=== PATIENT | male | born 1985 | race Caucasian/White ===

== ENCOUNTER 2019-04-24 01:46 | Emergency (ER) | payer SELFPAY ==
[~2019-04-24] VITALS: Ht 182.9 cm; Wt 97.5 kg
[~2019-04-24 01:46] MED LIST: CYCL10TA2 PO
[2019-04-24] MEDS ORDERED: IBUPROFEN 200 MG TABLET. PO ONE (02:30)
[2019-04-24] MEDS ORDERED: DIPHTH,PERTUSS(ACELL),TET TOX 0.5 ML DISP.SYRIN. VAX IM ONE (02:30)
[2019-04-24] MEDS ORDERED: NEOMY/BACITR/POLYMYXIN OINT PACKET. TP ONE (02:30)
--- NOTE | 2019-04-24 02:50 | PHYS DOC ---
Past Medical History Past Medical History: No Pertinent History Past Medical History Limited due to alcohol intoxication Past Surgical History: Other Additional Past Surgical Histo: testicular surgey at age 7 Past Surgical History Limited due to alcohol intoxication Alcohol Use: Occasionally Drug Use: Marijuana Social History Limited due to alcohol intoxication Adult General Chief Complaint Chief Complaint: HAND PROBLEM HPI HPI 34-year-old male presents acutely intoxicated with report of right hand injury. Patient reports he punched "something ". Reports small laceration to his middle finger. Reports swelling and bruising to fourth and fifth knuckle. Denies numbness or tingling. Patient reports his life is "bad ". Reports the girl that he loves his with someone else. Patient denies suicidal or homicidal ideation. Reports last tetanus booster was greater than 5 years ago. History of present illness limited due to alcohol intoxication. Review of Systems Review of Systems Constitutional: Denies fever or chills Musculoskeletal: Reports right hand pain and swelling Integument: Reports abrasions and superficial laceration to right hand, reports bruising and swelling to right hand after punching something. Neurologic: Denies headache, focal weakness or sensory changes Psychiatric: Denies suicidal or homicidal ideation; reports depression Review of systems limited due to ETOH intoxication Current Medications Current Medications Current Medications Medications (Trade) Dose Ordered Sig/Pepe Start Time Stop Time Status Last Admin Dose Admin Diphtheria/ Tetanus/Acell Pertussis (Boostrix) 0.5 ml ONCE ONCE 04/24/19 02:30 04/24/19 02:31 DC 04/24/19 03:01 0.5 ML Ibuprofen (Motrin) 600 mg 1X ONCE 04/24/19 02:30 04/24/19 02:31 DC 04/24/19 03:01 600 MG Neomycin/ Polymyxin/ Bacitracin (Triple Antibiotic Ointment) 1 pkt 1X ONCE 04/24/19 02:30 04/24/19 02:31 DC 04/24/19 03:02 1 PKT Allergies Allergies Allergies Coded Allergies Type Severity Reaction Last Updated Verified No Known Drug Allergies 09/22/18 No Physical Exam Physical Exam Constitutional: Well developed, well nourished, no acute distress, non-toxic appearance HENT: Normocephalic, atraumatic, oropharynx moist Eyes: PERRL, EOMI, conjunctiva normal, no discharge, horizontal nystagmus Neck: Normal range of motion, no tenderness, supple Cardiovascular: Heart rate normal, regular rhythm Lungs & Thorax: Bilateral breath sounds clear to auscultation, no wheezing Skin: Warm, dry, no erythema, small superficial 1cm laceration to base of 3rd digit Extremities: right 4th and 5th MCP swelling and bruising to dorsal aspect, pain to right distal forearm/wrist, no deformity noted Neurologic: Alert and oriented X 3, no focal deficits noted Psychologic: Affect depressed, denies suicidal or homicidal ideation Current Patient Data Vital Signs Vital Signs Date Time Temp Pulse Resp B/P (MAP) Pulse Ox O2 Delivery O2 Flow Rate FiO2 04/24/19 02:51 102 20 96 04/24/19 02:51 109/67 (81) Room Air 04/24/19 01:55 98.9 98.9 EKG EKG [] Radiology/Procedures Radiology/Procedures EXAM: 1. Right forearm 2 views. 2. Right hand 3 views. HISTORY: Hand and forearm pain after trauma. COMPARISON: None. FINDINGS: A wire-like radiopaque foreign body projects within the radial soft tissues of the second digit distally measures 2 mm. No acute fractures are appreciated within the hand. There is a chronic healed fracture of the fifth metacarpal. The fingers are curled and not well-visualized. There is soft tissue swelling along the dorsum of the metacarpophalangeal joints. Joint spaces and alignment appear maintained. No fractures are appreciated more proximally in the forearm. The joint spaces and alignment of the elbow appear maintained. IMPRESSION: 1. Soft tissue swelling. No acute fracture. 2. 2 mm wire-like radiopaque foreign body within the second digit as above. Electronically signed by: Behzad Brennan MD (04/24/2019 2:57 AM) [facility] Course & Med Decision Making Course & Med Decision Making Pertinent Imaging studies reviewed. (See chart for details) Patient presents acutely intoxicated with abrasions noted to right hand with small superficial laceration and swelling to 4th/5th MCP. Wound cleaned and dressed. ICE applied. XR obtained without acute fracture, findings of chronic fracture noted. Patient crying and reporting "I have a bad life". Reports the girl he loves is with someone else. Patient denies suicidal or homicidal ideation. PAPITO bandage applied. Patient ambulatory with steady gate. Patient stable for discharge with friends with outpatient follow-up with PCP/orthopedic surgery/psychiatrist. Discussed findings and plan with patient and friends, who acknowledge understanding and agreement. Dragon Disclaimer Dragon Disclaimer This electronic medical record was generated, in whole or in part, using a voice recognition dictation system. Splinting Splinting : Location: right hand Pre-Made Type: PAPITO bandage Pre-Proc Neuro Vasc Exam: normal Post-Proc Neuro Vasc Exam: normal, unchanged from pre-exam Departure Departure Impression: Primary Impression: Hand contusion Additional Impressions: Finger fracture, right Sprain of wrist, right Alcohol intoxication Depression Abrasion Disposition: 01 HOME, SELF-CARE Condition: STABLE Referrals: NO PCP (PCP) WINTER POOLE MD Patient Instructions: Abrasion, [id number], Alcohol Intoxication, [id number], Depression, Adult, Gunw-ir-Lxen, Finger Fracture, [id number]-[id number], Hand Contusion, Iawo-wn-Ynka, Wrist Sprain with Rehab[facility] Additional Instructions: Use over the counter Tylenol and Ibuprofen for pain or discomfort. ICE area 20 min on then leave off for next 20 min. Do not soak your wound. You may shower. Clean wound daily with soap and water. Change dressing 2 times daily. Use over the counter antibiotic ointment with each dressing change. Problem Qualifiers Primary Impression: Hand contusion Encounter type: initial encounter Laterality: right Qualified Codes: S60.221A - Contusion of right hand, initial encounter Additional Impressions: Finger fracture, right Encounter type: sequela Finger: ring finger Fracture type: closed Phalanx: proximal Fracture alignment: nondisplaced Qualified Codes: S62.644S - Nondisplaced fracture of proximal phalanx of right ring finger, sequela Sprain of wrist, right Encounter type: initial encounter Qualified Codes: S63.501A - Unspecified sprain of right wrist, initial encounter Alcohol intoxication Complication of substance-induced condition: uncomplicated Qualified Codes: F10.920 - Alcohol use, unspecified with intoxication, uncomplicated Depression Depression Type: unspecified Qualified Codes: F32.9 - Major depressive disorder, single episode, unspecified NETTIE MIRANDA DO Apr 24, 2019 02:50
[2019-04-24 02:51] VITALS: BP 109/67
--- NOTE | 2019-04-24 03:00 | RAD ---
EXAM: 1. Right forearm 2 views. 2. Right hand 3 views. HISTORY: Hand and forearm pain after trauma. COMPARISON: None. FINDINGS: A wire-like radiopaque foreign body projects within the radial soft tissues of the second digit distally measures 2 mm. No acute fractures are appreciated within the hand. There is a chronic healed fracture of the fifth metacarpal. The fingers are curled and not well-visualized. There is soft tissue swelling along the dorsum of the metacarpophalangeal joints. Joint spaces and alignment appear maintained. No fractures are appreciated more proximally in the forearm. The joint spaces and alignment of the elbow appear maintained. IMPRESSION: 1. Soft tissue swelling. No acute fracture. 2. 2 mm wire-like radiopaque foreign body within the second digit as above. Electronically signed by: Behzad Brennan MD (04/24/2019 2:57 AM) [facility]
== END 2019-04-24 03:13 | disposition home or self-care (01) ==
LOC: ER 01:46
DX: S62.644A Nondisplaced fracture of proximal phalanx of right ring finger, initial encounter for closed fracture (principal); S61.212A Laceration without foreign body of right middle finger without damage to nail, initial encounter; S60.041A Contusion of right ring finger without damage to nail, initial encounter; S60.051A Contusion of right little finger without damage to nail, initial encounter; F10.129 Alcohol abuse with intoxication, unspecified; Y90.9 Presence of alcohol in blood, level not specified; W22.8XXA Striking against or struck by other objects, initial encounter; Y93.89 Activity, other specified; Y92.89 Other specified places as the place of occurrence of the external cause; Y99.8 Other external cause status; S63.591A Other specified sprain of right wrist, initial encounter; F32.9 Major depressive disorder, single episode, unspecified
CPT/HCPCS: 73090; 73130; 90471; 90715; 99284

== ENCOUNTER 2019-09-11 01:57 | Emergency (ER) | payer SELFPAY ==
[~2019-09-11] VITALS: Ht 182.9 cm; Wt 95.3 kg
[2019-09-11 02:39] VITALS: BP 105/67
[2019-09-11] MEDS ORDERED: NAPR-682 PO (02:50)
--- NOTE | 2019-09-11 02:51 | PHYS DOC ---
Past Medical History Past Medical History: No Pertinent History Past Surgical History: Other Additional Past Surgical Histo: testicular surgey at age 7 Alcohol Use: Occasionally Drug Use: Marijuana Adult General Chief Complaint Chief Complaint: MECHANICAL FALL HPI HPI Patient is a 34 year old male who presented to ER today for evaluation of left lower back pain after he fell onto the fender of his car today. Patient said he drinking alcohol with his dad today, when he tried to walk home he slipped and fell down. Patient denies any head or neck injury. Patient had a history of chronic back pain, patient felt like when he fell he aggrevated his back problem. he denies any pelvic pain, no hip pain. All other ROS is negative unless otherwise noted in HPI Review of Systems Review of Systems See above Current Medications Current Medications Current Medications Medications (Trade) Dose Ordered Sig/Pepe Start Time Stop Time Status Last Admin Dose Admin Ketorolac Tromethamine (Toradol Im) 60 mg 1X ONCE 09/11/19 03:00 09/11/19 03:01 DC 09/11/19 02:41 60 MG Orphenadrine Citrate (Norflex) 60 mg 1X ONCE 09/11/19 03:00 09/11/19 03:01 DC 09/11/19 02:42 60 MG Allergies Allergies Allergies Coded Allergies Type Severity Reaction Last Updated Verified No Known Drug Allergies 09/22/18 No Physical Exam Physical Exam See above Constitutional: Well developed, well nourished, no acute distress, non-toxic appearance. [] HENT: Normocephalic, atraumatic, bilateral external ears normal, oropharynx moist, no oral exudates, nose normal. [] Eyes: PERRLA, EOMI, conjunctiva normal, no discharge. [] Neck: Normal range of motion, no tenderness, supple, no stridor. [] Cardiovascular:Heart rate regular rhythm, no murmur [] Lungs & Thorax: Bilateral breath sounds clear to auscultation [] Abdomen: Bowel sounds normal, soft, no tenderness, no masses, no pulsatile masses. [] Skin: Warm, dry, no erythema, no rash. [] Back: No tenderness, no CVA tenderness. NO CONTUSION, no bony tenderness. Extremities: No tenderness, no cyanosis, no clubbing, ROM intact, no edema. [] Neurologic: Alert and oriented X 3, normal motor function, normal sensory function, no focal deficits noted. [] Psychologic: Affect normal, judgement normal, mood normal. [] Current Patient Data Vital Signs Vital Signs Date Time Temp Pulse Resp B/P (MAP) Pulse Ox O2 Delivery O2 Flow Rate FiO2 09/11/19 02:39 73 97 09/11/19 02:06 97.5 20 97.5 09/11/19 02:03 113/67 (82) Room Air EKG EKG [] Radiology/Procedures Radiology/Procedures [][facility] [address] [place] [address] IMAGING REPORT Signed PATIENT: DESTINEE SHEPPARD PACCOUNT: [id number] : 1985 LOCATION: ER AGE: 34 SEX: M EXAM STATUS: PRE ER ORD. PHYSICIAN: NISHANT MARCUS DO REASON: LOWER BACK PAIN, FELL TONIGHT PROCEDURE: LUMBAR SPINE 2-3V Lumbar spine AP lateral x-rays 3 views HISTORY: Lower back pain, fall. FINDINGS: Lumbar vertebral body height and alignment intact. No fracture evident. Moderate disc space narrowing and endplate spurring at L5-S1 disc space. IMPRESSION: No acute osseous injury. L5-S1 disc disease. Electronically signed by: Moises Pino MD (09/11/2019 3:00 AM) [facility] DICTATED and SIGNED BY: MOISES PINO MD DATE: 09/11/19 0300 Course & Med Decision Making Course & Med Decision Making Pertinent Labs and Imaging studies reviewed. (See chart for details) [] Dragon Disclaimer Dragon Disclaimer This electronic medical record was generated, in whole or in part, using a voice recognition dictation system. Departure Departure Impression: Primary Impression: Lower back pain Disposition: HOME, SELF-CARE Condition: STABLE Referrals: NO PCP (PCP) FOLLOW UP WITH YOUR DOCTOR NEEDED NEXT WEEK . Patient Instructions: Back Pain, Adult Scripts Naproxen Sodium (ANAPROX DS) 550 Mg Tablet 1 TAB PO BID for 10 Days, #20 TAB 0 Refills Prov: NISHANT MARCUS DO 09/11/19 NISHANT MARCUS DO Sep 11, 2019 02:51
[2019-09-11] MEDS ORDERED: ORPHENADRINE CITRATE 60 MG/2 ML VIAL. IM ONE (03:00)
[2019-09-11] MEDS ORDERED: KETOROLAC 60 MG/2 ML VIAL. IM ONE (03:00)
--- NOTE | 2019-09-11 03:03 | RAD ---
Lumbar spine AP lateral x-rays 3 views HISTORY: Lower back pain, fall. FINDINGS: Lumbar vertebral body height and alignment intact. No fracture evident. Moderate disc space narrowing and endplate spurring at L5-S1 disc space. IMPRESSION: No acute osseous injury. L5-S1 disc disease. Electronically signed by: Marco Pino MD (09/11/2019 3:00 AM) [id number]
== END 2019-09-11 03:00 | disposition home or self-care (01) ==
LOC: ER 01:57
DX: G89.11 Acute pain due to trauma (principal); M54.5 Low back pain; F12.90 Cannabis use, unspecified, uncomplicated; Z98.890 Other specified postprocedural states; W18.39XA Other fall on same level, initial encounter; Y93.89 Activity, other specified; Y92.89 Other specified places as the place of occurrence of the external cause; Y99.8 Other external cause status
CPT/HCPCS: 72100; 96372; 99284; J1885; J2360

== ENCOUNTER 2020-09-17 10:12 | Emergency (ER) | payer SELFPAY ==
[~2020-09-17] VITALS: Ht 182.9 cm; Wt 93.1 kg
[~2020-09-17 10:12] MED LIST changes: +NAPR-682 PO
[2020-09-17 10:20] VITALS: BP 136/89
--- NOTE | 2020-09-17 10:40 | PHYS DOC ---
Past Medical History Past Medical History: Other Additional Past Medical Histor: CHRONIC BACK PAIN Past Surgical History: Other Additional Past Surgical Histo: testicular surgey at age 7 Smoking Status: Current Every Day Smoker Alcohol Use: Rarely Drug Use: Marijuana General Adult EDM: Chief Complaint: BACK PAIN - NO INJURY HPI: HPI: Patient is a 35 year old male presents to the emergency department complaining of lumbar spine pain after loading wood at work on Thursday. Patient states his boss told him he needed to come to the emergency department and be evaluated. Patient states he has a longstanding history of chronic low back pains. Patient denies any specific injury to his low back stating that he exacerbated his pain from bending over and lifting wood to throw onto truck for transport. Patient states that he has seen a chiropractor in the past which helps some. Patient states today he is needing a work excuse and pain medicine for his low back. Patient denies any numbness or tingling down his lower extremities, patient denies any loss of bowel or bladder. Patient denies any lower extremity swelling. Patient denies any nausea vomiting or diarrhea or constipation. Patient denies any recent fever chills cough shortness of breath or chest pains. Patient denies any other physical elements or physical complaints at this time. Review of Systems: Review of Systems: 14 body systems of review of systems have been reviewed. See HPI for pertinent positives and negative responses, otherwise all other systems are negative, nonpertinent or noncontributory. Heart Score: Risk Factors: Risk Factors: DM, Current or recent (<one month) smoker, HTN, HLP, family history of CAD, obesity. Risk Scores: Score 0 - 3: 2.5% MACE over next 6 weeks - Discharge Home Score 4 - 6: 20.3% MACE over next 6 weeks - Admit for Clinical Observation Score 7 - 10: 72.7% MACE over next 6 weeks - Early Invasive Strategies Allergies: Allergies: Allergies Coded Allergies Type Severity Reaction Last Updated Verified No Known Drug Allergies 09/22/18 No Physical Exam: PE: Constitutional: Well developed, well nourished, no acute distress, non-toxic appearance. HENT: Normocephalic, atraumatic, bilateral external ears normal, oropharynx moist, no oral exudates, nose normal. Eyes: PERRLA, EOMI, conjunctiva normal, no discharge. Neck: Normal range of motion, no tenderness, supple, no stridor. Cardiovascular:Heart rate regular rhythm, no murmur Lungs & Thorax: Bilateral breath sounds clear to auscultation Abdomen: Bowel sounds normal, soft, no tenderness, no masses, no pulsatile masses. Skin: Warm, dry, no erythema, no rash. Back: No CVA tenderness elicited, patient has pain to palpation at mid lumbar area without radiation of pain, patient denies any numbness or tingling down extremities, no extremity swelling, 2+ dorsalis pedis and posterior tibial pulses, distal cap refill less than 2 seconds bilaterally. No saddle anesthesia appreciated. Extremities: No tenderness, no cyanosis, no clubbing, ROM intact, no edema. Neurologic: Alert and oriented X 3, normal motor function, normal sensory function, no focal deficits noted. Psychologic: Affect normal, judgement normal, mood normal. Current Patient Data: Vital Signs: Vital Signs Date Time Temp Pulse Resp B/P (MAP) Pulse Ox O2 Delivery O2 Flow Rate FiO2 09/17/20 10:20 97.9 89 18 136/89 (105) 96 Room Air 97.9 EKG: EKG: [] Radiology/Procedures: Radiology/Procedures: SEX: M EXAM STATUS: REG ER ORD. PHYSICIAN: NETTIE CARLOS APRN REASON: MIDLINE LUMBAR SPINE PAIN AFTER LIFTING HEAVY OBJECTS PROCEDURE: CT LUMBAR SPINE WO CONTRAST CT LUMBAR SPINE WO Date: 09/17/2020 11:14 AM Indication: Reason: MIDLINE LUMBAR SPINE PAIN AFTER LIFTING HEAVY OBJECTS / Spl. Instructions: / History: Comparison: None. Technique: Helical CT images of the lumbar spine were obtained without contrast. Coronal and sagittal reformatted images were also performed. One or more of the following dose reduction techniques were utilized: Automated exposure control (AEC), Adjustment of mA and/or kV according to patient size, Use of iterative reconstruction technique such as ASiR, CT scan done according to ALARA and image gently/image wisely. Findings: The lumbar spine is normally aligned. No acute fracture. Vertebral body heights are maintained without compression deformity. Mild degenerative disc disease at L5-S1. No aggressive lytic or blastic osseous lesion. No high grade spinal canal stenosis or neuroforaminal narrowing. No soft tissue abnormality within the visualized abdomen or pelvis. The visualized abdominal aorta is normal caliber. IMPRESSION: No acute osseous abnormality of the lumbar spine. Mild lumbar spondylosis. Electronically signed by: Fariha Barrera MD (09/17/2020 1:01 PM) [id number] DICTATED and SIGNED BY: FARIHA BARRERA MD DATE: 09/17/20 [id number] 0 Course & Med Decision Making: Course & Med Decision Making Pertinent Labs and Imaging studies reviewed. (See chart for details) 35-year-old male presents emergency department for low back pain seeking a work excuse and pain medicines. Physical exam did not reveal any saddle anesthesia, did reveal lumbar midline spinal pain, a CT was ordered for evaluation. CT L-spine read negative for acute process per house radiologist interpretation. Discussed findings with patient, patient will be discharged home with ibuprofen for pain, work excuse for 2 days. Patient gave verbal understanding discharge home instructions, return to ER precautions and concerns, medication use, follow-up with primary care for further chronic back pains, had no further questions or concerns and was discharged home without incident. Impression: #1 lumbago Dragon Disclaimer: Dragon Disclaimer: This electronic medical record was generated, in whole or in part, using a voice recognition dictation system. Departure Departure Impression: Primary Impression: Lumbago Qualified Codes: M54.5 - Low back pain Disposition: 01 DC HOME SELF CARE/HOMELESS Condition: GOOD Referrals: NO PCP (PCP) Patient Instructions: Back Pain, Adult Additional Instructions: Take prescriptions as directed, follow-up with your primary care physician for ongoing chronic back pain, return to the emergency department for worsening symptoms or other concerns. EMERGENCY DEPARTMENT GENERAL DISCHARGE INSTRUCTIONS Thank you for coming to [facility] Emergency Department (ED) today and trusting us with you care. We trust that you had a positive experience in our Emergency Department. If you wish to speak to the department management, you may call the Director at [phone]. YOUR FOLLOW UP INSTRUCTIONS ARE FOLLOWS: 1. Do you have a private Doctor? If you do not have a private doctor, please ask for a resource list of physicians or clinics that may be able to assist you with follow up care. 2. The Emergency Physicain has interpreted your x-rays. The X-Ray specialist will also review them. If there is a change in the findings, you will be notified in 48 hours when at all possible. 3. A lab test or culture has been done, your results will be reviewed and you will be notified if you need a change in treatment. ADDITIONAL INSTRUCTIONS AND INFORMATION: 1. Your care today has been supervised by a physician who is specially trained in emergency care. Many problems require more than one evaluation for a complete diagnosis and treatment. We recommend that you schedule your follow up appointment as recommended to ensure complete treatment of you illness or injury. If you are unable to obtain follow up care and continue to have a problem, or if your condition worsens, we recommend that you return to the ED. 2. We are not able to safely determine your condition over the phone nor are we able to give sound medical advice over the phone. For these safety reasons, if you call for medical advice we will ask you to come to the ED for further evaluation. 3. If you have any questions regarding these discharge instructions please call the ED at [phone]. SAFETY INFORMATION: In the interest of safety, wellness, and injury prevention; we encourage you to wear your sealbelt, if you smoke; quite smoking, and we encourage family to use a protective helmet for bicycling and other sporting events that present an increased risk for head injury. IF YOUR SYMPTOMS WORSEN OR NEW SYMPTOMS DEVELOP, OR YOU HAVE CONCERNS ABOUT YOUR CONDITION; OR IF YOUR CONDITION WORSENS WHILE YOU ARE WAITING FOR YOUR FOLLOW UP APPOINTMENT; EITHER CONTACT YOUR PRIMARY CARE DOCTOR, THE PHYSICIAN WHOSE NAME AND NUMBER YOU WERE GIVEN, OR RETURN TO THE ED IMMEDIATELY. Scripts Ibuprofen (IBUPROFEN) 600 Mg Tablet 600 MG PO PRN Q6HRS PRN for INFLAMMATION, #20 TAB 0 Refills Prov: NETTIE CARLOS APRN 09/17/20 NETTIE CARLOS APRN Sep 17, 2020 10:40
[2020-09-17] MEDS ORDERED: methylPREDNISolone ACETATE 80 MG/ML VIAL. IM ONE (10:45)
[2020-09-17] MEDS ORDERED: KETOROLAC 60 MG/2 ML VIAL. IM ONE (10:45)
--- NOTE | 2020-09-17 13:03 | RAD ---
CT LUMBAR SPINE WO Date: 09/17/2020 11:14 AM Indication: Reason: MIDLINE LUMBAR SPINE PAIN AFTER LIFTING HEAVY OBJECTS / Spl. Instructions: / Hi story: Comparison: None. Technique: Helical CT images of the lumbar spine were obtained without contrast. Coronal and sagitta l reformatted images were also performed. One or more of the following dose reduction techniques were utilized: Automated exposure control (AEC), Adjustment of mA and/or kV according to patient size, Us e of iterative reconstruction technique such as ASiR, CT scan done according to ALARA and image gentl y/image wisely. Findings: The lumbar spine is normally aligned. No acute fracture. Vertebral body heights are maintained withou t compression deformity. Mild degenerative disc disease at L5-S1. No aggressive lytic or blastic osse ous lesion. No high grade spinal canal stenosis or neuroforaminal narrowing. No soft tissue abnormality within the visualized abdomen or pelvis. The visualized abdominal aorta is normal caliber. IMPRESSION: No acute osseous abnormality of the lumbar spine. Mild lumbar spondylosis. Electronically signed by: Eric Ruiz MD (09/17/2020 1:01 PM) [id number]
[2020-09-17] MEDS ORDERED: IBUP-1007 PO (13:44)
== END 2020-09-17 14:06 | disposition home or self-care (01) ==
LOC: ER 10:12
DX: M54.5 Low back pain (principal); G89.29 Other chronic pain; F17.200 Nicotine dependence, unspecified, uncomplicated
CPT/HCPCS: 72131; 96372; 99284; J1040; J1885

== ENCOUNTER 2021-03-16 00:29 | Emergency (ER) | payer SELFPAY ==
[~2021-03-16 00:29] MED LIST changes: +IBUP-1007 PO
[2021-03-16 00:34] VITALS: BP 114/75
== END 2021-03-16 02:00 | disposition left against medical advice (07) ==
LOC: ER 00:29
DX: M25.572 Pain in left ankle and joints of left foot (principal); Z53.21 Procedure and treatment not carried out due to patient leaving prior to being seen by health care provider

== ENCOUNTER 2021-04-23 16:09 | Emergency (ER) | payer OTHER ==
[~2021-04-23] VITALS: Ht 182.9 cm; Wt 98.0 kg
[2021-04-23] MEDS ORDERED: BUPIVACAINE MPF 0.5% 30 ML VIAL. INJ ONE (17:15)
--- NOTE | 2021-04-23 17:41 | RAD ---
3 view sacrum dated 04/23/2021. No comparison available. Clinical data indication: Pain. FINDINGS: 3 view sacrum show normal bony alignment. No displaced fracture. No periostitis or bone destruction. Mild hypertrophic change of the bilateral SI joint. IMPRESSION: No acute findings. Electronically signed by: Ac Bond MD (04/23/2021 5:38 PM) [facility]
[2021-04-23 17:44] LABS: BASO # 0.1 x10^3/uL (0.0-0.2); BASO % 1 % (0-3); EOS % 0 % (0-3); HEMATOCRIT 46.3 % (39.0-53.0); LYMPH # 1.3 x10^3/uL (1.0-4.8); LYMPH % 9 % (24-48); MEAN CORPUSCULAR HEMOGLOBIN 32 pg (25-35); MEAN CORPUSCULAR HGB CONC 35 g/dL (31-37); MEAN CORPUSCULAR VOLUME 93 fL (79-100); MONO # 1.1 x10^3/uL (0.0-1.1); MONO % 7 % (0-9); NEUT # 12.5 x10^3/uL (1.8-7.7); NEUT % 83 % (31-73); PLATELET COUNT 199 x10^3/uL (140-400); RED BLOOD COUNT 4.99 x10^6/uL (4.30-5.70); RED CELL DISTRIBUTION WIDTH 13.9 % (11.5-14.5)
[2021-04-23] MEDS ORDERED: CONTRAST GIVEN. MC PRN (17:45)
[2021-04-23 17:55] LABS: CALCIUM 9.3 mg/dL (8.5-10.1); CREATININE 0.8 mg/dL (0.7-1.3); POTASSIUM 4.8 mmol/L (3.5-5.1)
[2021-04-23] MEDS ORDERED: IOHEXOL 300 MG/ML 100ML VIAL. IV ONE (18:00)
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
--- NOTE | 2021-04-23 18:13 | RAD ---
CT chest with contrast dated 04/23/2021. No comparison available. Clinical indication: Pain after injury. TECHNIQUE: Contiguous axial imaging of the chest performed following the adjacent venous administration of 75 cc Omnipaque 300. One or more of the following individualized dose reduction techniques were utilized for this examinat ion: 1. Automated exposure control 2. Adjustment of the mA and/or kV according to patient size 3. Use of iterative reconstruction technique FINDINGS: Heart size is within normal limits. No pericardial effusion. No mediastinal, hilar or axillary lympha denopathy. Calcified subcarinal lymph node. Thyroid gland unremarkable. Thoracic aorta within normal limits. Central airways are patent. Lungs are clear. No consolidation or pleural effusion. No pneumothorax. M inimal dependent groundglass opacity in the lower lobes, nonspecific. Limited images of the upper abdomen show diffuse low-density of the liver suggesting fatty infiltrati on. No apparent mass. Bone windows show no acute findings. IMPRESSION: 1. No traumatic abnormality of chest. 2. Clear lungs. 3. Mild fatty infiltration of the liver. Electronically signed by: Ac Bodn MD (04/23/2021 6:11 PM) JAYRO
[2021-04-23] MEDS ORDERED: BACITRACIN TOPICAL OINT PACKET. TP ONE (19:30)
[2021-04-23] MEDS ORDERED: IBUPROFEN 200 MG TABLET. PO ONE (19:30)
[2021-04-23] MEDS ORDERED: HYDROcodone/APAP 5/325MG 1 TAB TABLET PO ONE (19:30)
[2021-04-23] MEDS ORDERED: IBUP-1007 PO (19:31)
[2021-04-23] MEDS ORDERED: AMOX1TAB61 PO (19:31)
[2021-04-23] MEDS ORDERED: HYDR-2761 PO (19:31)
[2021-04-23] MEDS ORDERED: CYCL10TA2 PO (19:31)
[2021-04-23 19:35] VITALS: BP 115/79
--- NOTE | 2021-04-23 21:00 | EKG ---
[facility] [address] [place] [address] Test Date: 2021-04-23 Test Time: 16:37:01 Pat Name: DESTINEE SHEPPARD Department: Room: Gender: M Vp Lab: : 1985 Requested By: NETTIE CARLOS Order Number: [id number] Reading MD: Measurements Intervals [place] Rate: 71 P: 46 [place]: 172 QRS: 18 QRSD: 96 T: 9 QT: 356 QTc: 391 Interpretive Statements SINUS RHYTHM NORMAL ECG RI6.02 No previous ECG available for comparison
== END 2021-04-23 19:47 | disposition home or self-care (01) ==
LOC: ER 16:09
DX: S01.511A Laceration without foreign body of lip, initial encounter (principal); S20.219A Contusion of unspecified front wall of thorax, initial encounter; M53.3 Sacrococcygeal disorders, not elsewhere classified; G89.29 Other chronic pain; F17.200 Nicotine dependence, unspecified, uncomplicated; V43.53XA Car driver injured in collision with pick-up truck in traffic accident, initial encounter; Y92.488 Other paved roadways as the place of occurrence of the external cause; Y93.89 Activity, other specified; Y99.8 Other external cause status
CPT/HCPCS: 36415; 40650; 71260; 72220; 80048; 85025; 93005; 99285; J3490; Q9967; 12011